=== PATIENT | female | born 1940 | race Caucasian/White ===

== ENCOUNTER 2020-03-21 16:45 | Emergency (ER) | payer MEDICARE ==
[2020-03-21] MEDS ORDERED: Sodium Chloride 0.9% 1,000 ML IV SCH (18:00)
--- NOTE | 2020-03-21 18:06 | EDM.PDOC ---
ED HPI GENERAL MEDICAL PROBLEM - General Chief Complaint: Gastrointestinal Problem Stated Complaint: [facility] Time Seen by Provider: 03/21/20 17:00 Source of Information: Reports: Patient, EMS, Family History Limitations: Reports: No Limitations - History of Present Illness INITIAL COMMENTS - FREE TEXT/NARRATIVE: 79-year-old female with chronic rheumatoid arthritis, hypertension, has had 3 days of diarrhea since starting on prednisone. She was seen in the clinic last week for weakness and hypotension, her blood pressure medication was cut in half and she was started on a course of prednisone. Since that time she had watery diarrhea which is much improved today but while standing she felt very lightheaded and almost fainted and EMS was called. Her systolic blood pressure was only 70 initially. She has had no diarrhea today. She denies any shortness of breath, chest pain, palpitations or nausea or vomiting. No blood in her stool. We did get the clinic records from 4 days ago and her sed rate was 41 but the rest of her labs looked very good. Her blood pressure at that time was 110 systolic. Onset: Unknown/Unsure Associated Symptoms: Reports: Weakness, Other (Watery diarrhea) - Related Data Allergies Allergy/AdvReac Type Severity Reaction Status Date / Time doxycycline calcium Allergy Hives Verified 03/21/20 16:48 [From Vibramycin] doxycycline hyclate Allergy Hives Verified 03/21/20 16:48 [From Vibramycin] doxycycline monohydrate Allergy Hives Verified 03/21/20 16:48 [From Vibramycin] erythromycin base Allergy Hives Verified 03/21/20 16:48 [Erythromycin Base] metronidazole [From Flagyl] Allergy Hives Verified 03/21/20 16:48 Penicillins Allergy Hives Verified 03/21/20 16:48 rofecoxib [From Vioxx] Allergy Cannot Verified 03/21/20 16:48 Remember acetaminophen AdvReac Delusions Verified 03/21/20 16:48 [From Darvocet-N] lisinopril [From Zestril] AdvReac Cough Verified 03/21/20 16:48 propoxyphene napsylate AdvReac Delusions Verified 03/21/20 16:48 [From Darvocet-N] Home Meds: Home Meds Cholestyramine/Aspartame [Prevalite Powder] 4 gm PO DAILY 07/17/14 [History] Furosemide 80 mg PO DAILY 07/17/14 [History] Hydroxychloroquine [Plaquenil] 400 mg PO DAILY 07/17/14 [History] L.acidoph,Paracasei, B.lactis [Probiotic] 1 each PO DAILY 07/17/14 [History] Ergocalciferol (Vitamin D2) [Vitamin D2] 2,000 unit PO DAILY 08/25/17 [History] Potassium Chloride 20 meq PO DAILY 08/25/17 [History] Ascorbic Acid [C-1000] 1,000 mg PO BID 03/21/20 [History] Aspirin [Halfprin] 81 mg PO DAILY 03/21/20 [History] Candesartan [Atacand] 16 mg PO DAILY 03/21/20 [History] Linaclotide [Linzess] 145 mcg PO DAILY 03/21/20 [History] Methenamine Hippurate [Hiprex] 1 gm PO BID 03/21/20 [History] Peppermint Oil [Ibgard] 90 mg PO TID 03/21/20 [History] Simethicone 125 mg PO QID 03/21/20 [History] estradioL [Estrace] 1 applic VG ASDIRECTED 03/21/20 [History] predniSONE [Prednisone] 20 mg PO ASDIRECTED 03/21/20 [History] Past Medical History HEENT History: Reports: Impaired Vision Cardiovascular History: Reports: Hypertension Gastrointestinal History: Reports: GERD Genitourinary History: Reports: None [employer] History: Reports: Musculoskeletal History: Reports: Osteoporosis, Other (See Below) Other Musculoskeletal History: right shoulder pain Endocrine/Metabolic History: Reports: Obesity/BMI 30+ - Infectious Disease History Infectious Disease History: Reports: Chicken Pox, Measles, Mumps - Past Surgical History Head Surgeries/Procedures: Reports: None HEENT Surgical History: Reports: Cataract Surgery Cardiovascular Surgical History: Reports: None GI Surgical History: Reports: Cholecystectomy Female Surgical History: Reports: Hysterectomy, Other (See Below) Other Female Surgeries/Procedures: Bladder suspension Endocrine Surgical History: Reports: None Musculoskeletal Surgical History: Reports: Hip Replacement, Knee Replacement, Shoulder Replacement, Other (See Below) Other Musculoskeletal Surgeries/Procedures:: Bilateral feet surgery, bilat feet Dermatological Surgical History: Reports: None Social & Family History - Tobacco Use Tobacco Use Status *Q: Never Tobacco User Second Hand Smoke Exposure: No - Caffeine Use Caffeine Use: Reports: Soda - Recreational Drug Use Recreational Drug Use: No ED ROS GENERAL - Review of Systems Review Of Systems: See Below Constitutional: Reports: Malaise. Denies: Fever, Chills HEENT: Reports: No Symptoms Respiratory: Denies: Shortness of Breath Cardiovascular: Reports: Lightheadedness. Denies: Chest Pain, Palpitations GI/Abdominal: Reports: Diarrhea. Denies: Nausea, Vomiting : Reports: No Symptoms Musculoskeletal: Reports: Other (Rheumatoid arthritis but no acute inflammatory changes) Neurological: Reports: Dizziness, Weakness ED EXAM, GENERAL - Physical Exam Exam: See Below Exam Limited By: No Limitations General Appearance: Alert, No Apparent Distress Eye Exam: Bilateral Eye: Normal Inspection Head: Atraumatic Neck: Supple, Non-Tender Respiratory/Chest: Lungs Clear Cardiovascular: Regular Rate, Rhythm GI/Abdominal: Soft, Non-Tender Extremities: Other (No significant peripheral edema, no significant joint inflammation) Neurological: Alert, Oriented Psychiatric: Normal Affect, Normal Mood Course - Vital Signs Last Recorded V/S: Last Vital Signs Temp 99.2 F 03/21/20 16:59 Pulse 75 03/21/20 19:13 Resp 12 03/21/20 18:13 BP 105/39 L 03/21/20 19:13 Pulse Ox 95 03/21/20 18:13 - Orders/Labs/Meds Orders: Active Orders 24 hr Category Date Time Status UA W/MICROSCOPIC [URIN] Urgent Lab 03/21/20 18:50 Ordered Labs: Laboratory Tests 03/21/20 03/21/20 03/21/20 Range/Units 17:53 17:53 18:00 WBC 13.9 H (4.5-11.0) K/uL RBC 4.05 (3.30-5.50) M/uL Hgb 11.8 L (12.0-15.0) g/dL Hct 36.1 (36.0-48.0) % MCV 89 (80-98) fL MCH 29 (27-31) pg MCHC 33 (32-36) % Plt Count 137 L (150-400) K/uL Neut % (Auto) 81 H (36-66) % Lymph % (Auto) 5 L (24-44) % Hamb[place] % (Auto) 12 H (2-6) % Eos % (Auto) 1 L (2-4) % Baso % (Auto) 0 (0-1) % Sodium 131 L (140-148) mmol/L Potassium 4.1 (3.6-5.2) mmol/L Chloride 99 L (100-108) mmol/L Carbon Dioxide 25 (21-32) mmol/L Anion Gap 11.1 (5.0-14.0) mmol/L BUN 30 H (7-18) mg/dL Creatinine 1.5 H (0.6-1.0) mg/dL Est Cr Clr Drug Dosing 21.49 mL/min Estimated GFR (MDRD) 33 L (>60) Glucose 96 (74-106) mg/dL Calcium 8.0 L (8.5-10.1) mg/dL Total Bilirubin 0.5 (0.2-1.0) mg/dL AST 12 L (15-37) U/L ALT 11 L (12-78) U/L Alkaline Phosphatase 40 L (46-116) U/L Total Protein 5.6 L (6.4-8.2) g/dL Albumin 2.6 L (3.4-5.0) g/dL Globulin 3.0 (2.3-3.5) g/dL Albumin/Globulin Ratio 0.9 L (1.2-2.2) SARS CoV-2 RNA Rapid DESHAWN Negative Meds: Medications Discontinued Medications Generic Name Dose Route Start Last Admin Trade Name Freq PRN Reason Stop Dose Admin Sodium Chloride 1,000 mls @ 1,000 mls/hr 03/21/20 18:00 03/21/20 18:16 Normal Saline IV 1,000 mls/hr ASDIRECTED [facility] Administration - Re-Assessments/Exams Free Text/Narrative Re-Assessment/Exam: 03/21/20 18:06 Patient will be bolused with 1 L of normal saline, CBC and CMP were retested. We also did a rapid Covid test. 03/21/20 20:08 Rapid Covid was negative, after liter of fluid her blood pressure normalized to a systolic of 111. CMP showed moderate dehydration compared to creatinine, BUN and GFR levels last week. No reason for hospitalization at this time, going to advise her to hold her blood pressure medicine for the next couple of days and stop the prednisone and follow-up with her primary provider if not improving satisfactorily. She does monitor her blood pressure at home, if it starts to rise consistently she can reinitiate her blood pressure medicines. Departure - Departure Time of Disposition: 19:35 Disposition: Home, Self-Care 01 Clinical Impression: Dehydration, Near syncope Hypotension Qualifiers: Hypotension type: hypotension due to hypovolemia Qualified Code(s): I95.89 - Other hypotension; E86.1 - Hypovolemia - Discharge Information Instructions: Dehydration, Adult, [id number] Referrals: PCP,None [Primary Care Provider] - Forms: ED Department Discharge Care Plan Goals: Stop prednisone and hold your blood pressure medication for the next few days u ntil your blood pressure normalizes. Recheck in 3 to 4 days if symptoms are persistent or return sooner if worsening or concerns. Stay hydrated. Sepsis Event Note (ED) - Evaluation Sepsis Screening Result: No Definite Risk - Focused Exam Vital Signs: Vital Signs Temp Pulse Resp BP Pulse Ox 03/21/20 19:13 75 105/39 L 03/21/20 19:00 75 115/40 L 03/21/20 18:13 76 12 95/34 L 95 03/21/20 17:43 77 15 95/32 L 97 03/21/20 17:14 82 15 99/40 L 99 03/21/20 16:59 99.2 F 84 84 H 111/40 L 96 03/21/20 16:48 99.2 F 84 15 111/40 L 96 - My Orders Last 24 Hours: My Active Orders 03/21/20 18:50 UA W/MICROSCOPIC [URIN] Urgent - Assessment/Plan Last 24 Hours: My Active Orders 03/21/20 18:50 UA W/MICROSCOPIC [URIN] Urgent
[2020-03-21 19:19] VITALS: BP 105/39; PULSE 75
== END 2020-03-21 19:38 | disposition home or self-care (01) ==
LOC: JP.ED 16:45
DX: I95.89 Other hypotension (principal); E86.1 Hypovolemia; E86.0 Dehydration; I10 Essential (primary) hypertension; E66.9 Obesity, unspecified; Z68.34 Body mass index [BMI] 34.0-34.9, adult; Z88.1 Allergy status to other antibiotic agents; Z88.0 Allergy status to penicillin; Z88.6 Allergy status to analgesic agent; Z88.8 Allergy status to other drugs, medicaments and biological substances; Z79.82 Long term (current) use of aspirin; Z79.899 Other long term (current) drug therapy; Z20.822 Contact with and (suspected) exposure to COVID-19
CPT/HCPCS: 36415; 80053; 85025; 99285; J7030; U0002

== ENCOUNTER 2024-05-18 10:07 | Emergency (ER) | payer MEDICARE ==
[2024-05-18 13:32] VITALS: BP 153/45; PULSE 75
== END 2024-05-18 13:40 | disposition home or self-care (01) ==
LOC: JP.ED 10:07
DX: M16.11 Unilateral primary osteoarthritis, right hip (principal); I10 Essential (primary) hypertension; K21.9 Gastro-esophageal reflux disease without esophagitis; E66.9 Obesity, unspecified; Z79.899 Other long term (current) drug therapy; Z79.82 Long term (current) use of aspirin; Z88.0 Allergy status to penicillin; Z88.6 Allergy status to analgesic agent; Z88.1 Allergy status to other antibiotic agents; Z88.8 Allergy status to other drugs, medicaments and biological substances; Z68.32 Body mass index [BMI] 32.0-32.9, adult
CPT/HCPCS: 73502-26-RT; 73502-RT; 99283